=== PATIENT | female | born 1980 | race Caucasian/White ===

== ENCOUNTER 2017-12-13 22:19 | Emergency (ER) | payer SELFPAY ==
[~2017-12-13] VITALS: Ht 160 cm; Wt 46.7 kg
[2017-12-13] MEDS ORDERED: ATIVAN0.5 MG ORAL (22:32)
[2017-12-13] MEDS ORDERED: TENORMIN50 MG ORAL (22:32)
[2017-12-13] MEDS ORDERED: CITALOPRAM HBR20 M1 ORAL (22:32)
[2017-12-13] MEDS ORDERED: traMADol 50mg tab ORAL ONE (22:45)
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
[2017-12-13 23:19] VITALS: BP 122/64
[2017-12-14 01:25] LABS: APPEARANCE,URINE CLEAR; BILIRUBIN, URINE NEGATIVE (NEGATIVE); GLUCOSE, URINE (UA) NEGATIVE (NEGATIVE); KETONES,URINE 2+ (NEGATIVE); LEUKOCYTE ESTERASE ,URINE NEGATIVE (NEGATIVE); NITRITE,URINE NEGATIVE (NEGATIVE); PH,URINE 5 (4.5-8.0); PROTEIN,URINE NEGATIVE (NEGATIVE); UROBILINOGEN,URINE 1 MG/DL (0.0-1.0)
[2017-12-14 01:31] VITALS: BP 118/66
[2017-12-14 01:33] LABS: COLOR,URINE YELLOW
[2017-12-14] MEDS ORDERED: TRAMADOL HCL50 MG ORAL (01:41)
[2017-12-14] MEDS ORDERED: ROBAXIN500 MG PO (01:41)
[2017-12-14 01:49] VITALS: BP 118/66
--- NOTE | 2017-12-14 09:07 | Diagnostic Imaging Report ---
Indication: Neck pain. Technique: Continuous helical imaging of the cervical spine was obtained transaxially from the skull base to the upper thoracic spine. 2-D coronal and sagittal reformatted images were obtained. Automatic Exposure Control was utilized. Total Dose length Product (DLP): 253.[address] Dose Index Volume (CTDIvol): 12.35 mGy Comparison: None Findings: There is no acute fracture or malalignment identified. There is no soft tissue swelling identified. 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 Some of the intervertebral discs show mild narrowing. Disc disease is moderate at C5-6 with prominent spurs. Minimal anterolistheses at C2-3 and C3-4 noted. Slightly reversed cervical lordosis noted which may be due to muscle spasm. Impression: No acute injury Mild spondylosis [facility] has communicated the preliminary results to the Emergency Department. Their findings are largely concordant with this report. The CT scanner at [facility] is accredited by the [employer] and the scans are performed using dose optimization techniques as appropriate to a performed exam including Automatic Exposure control.
--- NOTE | 2017-12-14 09:40 | Diagnostic Imaging Report ---
Indication: Headache and trauma Technique: Contiguous 5 mm thick transaxial imaging of the head obtained in a Siemens Sensation [address] scanner. Soft tissue and bone windows generated. Automatic Exposure Control was utilized. Total Dose length Product (DLP): 1301.[address] Dose Index Volume (CTDIvol): 70.38 mGy Comparison: none Findings: The size and configuration of the cortical sulci, basal cisterns, and ventricles are within normal limits for age. There is no mass effect, midline shift, or edema identified. There is no evidence of acute hemorrhage or abnormal intra-axial or extra-axial fluid collections. The bones and soft tissues are unremarkable. Impression: No mass effect, edema or acute bleed. The CT scanner at [facility] is accredited by the [employer] and the scans are performed using dose optimization techniques as appropriate to a performed exam including Automatic Exposure control.
== END 2017-12-14 01:50 | disposition home or self-care (01) ==
LOC: EMR 22:44
DX: S06.0X0A Concussion without loss of consciousness, initial encounter (principal); S16.1XXA Strain of muscle, fascia and tendon at neck level, initial encounter; S40.021A Contusion of right upper arm, initial encounter; Y04.2XXA Assault by strike against or bumped into by another person, initial encounter; Y04.1XXA Assault by human bite, initial encounter; Y92.89 Other specified places as the place of occurrence of the external cause; Z88.6 Allergy status to analgesic agent; Z88.5 Allergy status to narcotic agent; F41.9 Anxiety disorder, unspecified; F17.200 Nicotine dependence, unspecified, uncomplicated; M47.812 Spondylosis without myelopathy or radiculopathy, cervical region
CPT/HCPCS: 70450; 72125; 81003; 81025; 99284